=== PATIENT | male | born 1975 | race Caucasian/White ===

== ENCOUNTER 2016-09-27 10:07 | Emergency (ER) | payer OTHER ==
[~2016-09-27] VITALS: Ht 160 cm; Wt 75.8 kg
[~2016-09-27 10:07] MED LIST: BACTDS PO; CEPH-443 PO; MUPI22OI2 TOP
[2016-09-27 10:11] VITALS: Ht 160 cm; Wt 75.8 kg
[2016-09-27] MEDS ORDERED: AMO500 PO (10:28)
[2016-09-27] MEDS ORDERED: IBUP-1542 PO (10:28)
[2016-09-27] MEDS ORDERED: predniSONE 20 MG TAB PO ONE (10:30)
[2016-09-27] MEDS ORDERED: AMOXICILLIN 500 MG CAP PO ONE (10:30)
[2016-09-27] MEDS ORDERED: IBUPROFEN 600 MG TAB PO ONE (10:30)
--- NOTE | 2016-09-27 10:31 | ERD ---
ER Documentation Chief Complaint Date/Time DATE: 09/27/16 TIME: 10:30 Chief Complaint right ear pain, st today x 2 days HPI This 41-year-old male presents with right ear pain sore throat for last 2 days. Denies fevers, cough, vomiting, vomiting, neck stiffness. ROS All systems reviewed and are negative except as per history of present illness. Medications Home Meds Active Scripts Amoxicillin* (Amoxicillin*) 500 Mg Cap, 500 MG PO TID for 10 Days, CAP Prov:CHANDLER VILLAVICENCIO MD 09/27/16 Ibuprofen* (Motrin*) 600 Mg Tab, 600 MG PO Q6, #15 TAB Prov:CHANDLER VILLAVICENCIO MD 09/27/16 Mupirocin* (Bactroban*) 2% -22 Gram Oint...g., 1 APPLIC TOP BID for 7 Days, EA Prov:VICKY CUEVAS PA-C 02/05/15 Sulfamethoxazole-Trimethoprim* (Bactrim* DS) 800-160 Mg Tab, 1 TAB PO BID for 7 Days, TAB Prov:VICKY CUEVAS PA-C 02/05/15 Cephalexin* (Keflex*) 500 Mg Capsule, 500 MG PO QID for 7 Days, CAP Prov:VICKY CUEVAS PA-C 02/05/15 Allergies Allergies: Coded Allergies: No Known Allergy (Unverified , 02/05/15) Physical Exam Vitals Vital Signs Date Time Temp Pulse Resp B/P Pulse Ox O2 Delivery O2 Flow Rate FiO2 09/27/16 10:11 99.3 81 18 129/81 99 Physical Exam Const: [], [id number] per Head: Atraumatic Eyes: Normal Conjunctiva ENT: Normal External Ears, Nose and Mouth. Tonsils 3+ with erythema. There is tender right anterior cervical lymphadenitis. Uvula is midline and airway is patent. Neck: Full range of motion..~ No meningismus. Resp: Clear to auscultation bilaterally Cardio: Regular rate and rhythm, no murmurs Abd: Soft, non tender, non distended. Normal bowel sounds Skin: No petechiae or rashes Back: No midline or flank tenderness Ext: No cyanosis, or edema Neur: Awake and alert Psych: Normal Mood and Affect Results 24 hrs Current Medications Medications (Trade) Dose Ordered Sig/Liv Route PRN Reason Start Time Stop Time Status Last Admin Dose Admin Prednisone (Prednisone) 60 mg ONCE ONCE PO 09/27/16 10:30 09/27/16 10:31 Ibuprofen (Motrin) 600 mg ONCE ONCE PO 09/27/16 10:30 09/27/16 10:31 Amoxicillin (Amoxicillin) 500 mg ONCE ONCE PO 09/27/16 10:30 09/27/16 10:31 Procedures/MDM Patient presents with signs and symptoms of acute pharyngitis and lymphadenitis. Patient was given prednisone 60 mg by mouth for significant right-sided swelling for potentially a developing abscess. There is no current abscess appreciated to be drained today. He was given ibuprofen as well as and amoxicillin 500 mg. We discharged home a short course of ibuprofen and amoxicillin instructed to return for worsening pain, swelling, difficulty breathing or new worsening symptoms as directed after instructions . The patient was stable with no new complaints during the ER course. Clinically, there is no current evidence to suggest meningitis, sepsis, acute abdomen, pneumonia, acute coronary syndrome, pulmonary embolism, or any other emergent condition appearing to require further evaluation or hospitalization. The patient should certainly return for any new or worsening symptoms per the aftercare instructions. They should otherwise follow-up with her primary care doctor for reevaluation this week. Departure Diagnosis: Primary Impression: Pharyngitis Pharyngitis/tonsillitis etiology: unspecified etiology Qualified Code: J02.9 - Pharyngitis, unspecified etiology Condition: Stable Patient Instructions: Pharyngitis, Strep (Presumed) Additional Instructions: Recheck for new or worsening symptoms with primary care doctor . CHANDLER VILLAVICENCIO MD Sep 27, 2016 10:31
== END 2016-09-27 10:56 | disposition home or self-care (01) ==
LOC: FTE 10:07
DX: J02.9 Acute pharyngitis, unspecified (principal)
CPT/HCPCS: J7512; Z7502; Z7610; 99283

== ENCOUNTER 2016-12-15 07:34 | Emergency (ER) | payer OTHER ==
[~2016-12-15] VITALS: Ht 167.6 cm; Wt 78.0 kg
[~2016-12-15 07:34] MED LIST changes: +AMO500 PO; +IBUP-1542 PO
[2016-12-15 07:36] VITALS: Ht 167.6 cm; Wt 78.0 kg
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
[2016-12-15] MEDS ORDERED: IBUP800T25 PO (08:04)
[2016-12-15] MEDS ORDERED: CYCL-319 PO (08:05)
== END 2016-12-15 08:12 | disposition home or self-care (01) ==
LOC: FTE 07:34
DX: M54.2 Cervicalgia (principal); M54.6 Pain in thoracic spine; M62.830 Muscle spasm of back; F17.210 Nicotine dependence, cigarettes, uncomplicated
CPT/HCPCS: 99283

== ENCOUNTER 2018-02-18 13:19 | Emergency (ER) | END 2018-02-18 17:34 | disposition home or self-care (01) ==

== ENCOUNTER 2018-10-02 08:28 | Emergency (ER) | payer OTHER ==
[~2018-10-02] VITALS: Ht 170.2 cm; Wt 77.0 kg
[~2018-10-02 08:28] MED LIST changes: -AMO500 PO; +AMOX500C2 PO; +AMOX500T PO; +CYCL10TA7 PO; +IBUP800T48 PO; +OFLO5DRO7 LEFT EAR
[2018-10-02 08:47] VITALS: Ht 170.2 cm; Wt 77.0 kg
[2018-10-02] MEDS ORDERED: AZIT250T PO (09:07)
[2018-10-02] MEDS ORDERED: IBUP800T48 PO (09:07)
[2018-10-02] MEDS ORDERED: PSEU-79 PO (09:07)
[2018-10-02 09:36] VITALS: BP 135/88; PULSE 81; RESP 20
--- NOTE | 2018-10-02 10:01 | ERD ---
ER Documentation Chief Complaint Chief Complaint SORE THROAT, HEADACHE AND BODYACHES X 4 DAYS HPI 43 yr old male complaining of sore throat and body aches. Denies fever. Has not taken medications for symptoms. Has a mild runny nose. Has a mild cough. Denies medical problems. NKDA. Surgical history denies. Social history denies ROS All systems reviewed and are negative except as per history of present illness. Medications Home Meds Active Scripts Pseudoephedrine Hcl* (Suphedrin*) 30 Mg Tablet, 30 MG PO Q6 PRN for CONGESTION, #30 TAB Prov:RAF STANLEY PA-C 10/02/18 Ibuprofen* (Motrin*) 800 Mg Tab, 800 MG PO Q6, #30 TAB Prov:RAF STANLEY PA-C 10/02/18 Azithromycin* (Zithromax*) 250 Mg Tablet, 250 MG PO .ZPACK DIRECTED, #6 TAB TAKE 500 MG (2 TABS) THE FIRST DAY THEN 250 MG (1 TAB) DAYS 2-5 Prov:RAF STANLEY PA-C 10/02/18 Ofloxacin Otic (Ofloxacin Otic) 5 Ml Drops, 10 DROP LEFT EAR DAILY for 7 Days, #1 BOTTLE Prov:OLIVER POSADA DO 02/18/18 Amoxicillin Trihydrate (Amoxicillin) 500 Mg Tablet, 500 MG PO Q8 for otitis media for 5 Days, #15 TAB Prov:OLIVER POSADA DO 02/18/18 Cyclobenzaprine Hcl* (Cyclobenzaprine Hcl*) 10 Mg Tablet, 10 MG PO Q12 PRN for pain/muscle spasms, #25 TAB Prov:AYAAN DOVER 12/15/16 Ibuprofen* (Motrin*) 800 Mg Tab, 800 MG PO Q8 PRN for PAIN AND OR ELEVATED TEMP, #30 TAB Prov:AYAAN DOVER 12/15/16 Amoxicillin* (Amoxicillin*) 500 Mg Cap, 500 MG PO TID for 10 Days, CAP Prov:CHANDLER VILLAVICENCIO MD 09/27/16 Ibuprofen* (Motrin*) 600 Mg Tab, 600 MG PO Q6, #15 TAB Prov:HCANDLER VILLAVICENCIO MD 09/27/16 Mupirocin* (Bactroban*) 2% -22 Gram Oint...g., 1 APPLIC TOP BID for 7 Days, EA Prov:VICKY CUEVAS PA-C 02/05/15 Sulfamethoxazole-Trimethoprim* (Bactrim* DS) 800-160 Mg Tab, 1 TAB PO BID for 7 Days, TAB Prov:VICKY CUEVAS PA-C 02/05/15 Cephalexin* (Keflex*) 500 Mg Capsule, 500 MG PO QID for 7 Days, CAP Prov:VICKY CUEVAS PA-C 02/05/15 Allergies Allergies: Coded Allergies: No Known Allergy (Unverified , 02/05/15) PMhx/Soc Medical and Surgical Hx: pt denies Medical Hx, pt denies Surgical Hx History of Surgery: No Anesthesia Reaction: No Hx Neurological Disorder: No Hx Respiratory Disorders: No Hx Cardiac Disorders: No Hx Psychiatric Problems: No Hx Miscellaneous Medical Probl: No Hx Alcohol Use: Yes (OOC) Hx Substance Use: No Hx Tobacco Use: Yes Smoking Status: Current some day smoker FmHx Family History: No diabetes, No coronary disease, No other Physical Exam Vitals Vital Signs Date Temp Pulse Resp B/P (MAP) Pulse Ox O2 O2 Flow FiO2 Time Delivery Rate 10/02/18 98.6 81 20 135/88 98 Room Air 09:36 (104) 10/02/18 99.0 83 19 141/82 98 08:47 (101) Physical Exam GENERAL: The patient is well-appearing, well-nourished, in no acute distress HEENT: Atraumatic. Conjunctivae are pink. Pupils equal, round, and reactive to light. There is no scleral icterus. Tympanic membranes clear bilaterally. Oropharynx clear. NECK: C-spine is soft and supple. There is no meningismus. There is no cervical lymphadenopathy. CHEST: Clear to auscultation bilaterally. There are no rales, wheezes or rhonchi. HEART: Regular rate and rhythm. No murmurs, clicks, rubs or gallops. Procedures/MDM MDM: 43-year-old male presenting with sore throat. Patient has URI symptoms. Patient will be discharged with supportive medications. Patient is told to follow-up with primary care. Patient will be discharged with antibiotics and only take if symptoms change or worsen. I have low suspicion for peritonsillar retropharyngeal abscess. All questions answered at discharge Departure Diagnosis: Primary Impression: Sore throat Condition: Stable Patient Instructions: When You Have a Sore Throat Referrals: FABIAN VALENTINO MD (PCP) Additional Instructions: FOLLOW UP WITH YOUR PRIMARY CARE PHYSICIAN TOMORROW.Return to this facility if you are not improving as expected. RAF STANLEY PA-C Oct 02, 2018 10:01
== END 2018-10-02 09:36 | disposition home or self-care (01) ==
LOC: FTE 08:28
DX: J02.9 Acute pharyngitis, unspecified (principal); F17.210 Nicotine dependence, cigarettes, uncomplicated
CPT/HCPCS: 99283